=== PATIENT | female | born 1950 | race Caucasian/White ===

== ENCOUNTER 2021-04-06 20:22 | Inpatient (IN) | payer MEDICARE ==
[~2021-04-06] VITALS: Ht 167.6 cm; Wt 82.3 kg
--- NOTE | 2021-04-06 22:30 | NUR ---
ARRIVAL VIA EMS
[2021-04-06 23:11] VITALS: BP 143/77
--- NOTE | 2021-04-06 23:18 | PCM.EKG ---
[facility] Test Date: 2021-04-06 Test Time: 23:12:22 Pat Name: FREDY VAIL Department: Room: ICU2 A Gender: F [facility] Owner: : 1950 Requested By: ROCK ARRINGTON Order Number: [id number] Reading MD: Measurements Intervals [place] Rate: 90 P: 61 MN: 127 QRS: 6 QRSD: 97 T: 70 QT: 374 QTc: 458 Interpretive Statements Sinus rhythm Left atrial enlargement Borderline low voltage, extremity leads No previous ECG available for comparison Please click the below link to view image of tracing.
[2021-04-06 23:27] VITALS: BP 135/58
[2021-04-07] VITALS (21 sets, daily range): BP systolic 64–152; BP diastolic 27–119
[2021-04-07] MEDS ORDERED: TYLENOL PO PRN (01:00)
[2021-04-07] MEDS ORDERED: ATIVAN PO PRN (01:00)
--- NOTE | 2021-04-07 01:14 | PRM.CONS ---
Consultation Reason for Consult: Reason for Consultation: transfer from [place] for [facility] w/ RVR, A. flutter, pneumonia, UTI, hyperthy History of Present Illness Current and Past HX: (1) Atrial fibrillation with RVR ICD Code: I48.91 - Unspecified atrial fibrillation SNOMED: 186547347095561 Assessment & Plan: Converted to normal sinus rhythm prior to transfer. S/p adenosine followed by digoxin followed by cardizem drip x 36hrs. Doing well on cardizem 240mg total daily, last dose was 04/06/21 AM. EKG upon arrival: NSR. Patient then back into [facility]. -ordered cardizem 20mg IV x 1 (25mg/kg/dose) -continue cardizem 60mg PO q6h -continue digoxin 0.125mg PO daily -continue xarelto 20mg PO daily -consult cardiology in AM (2) Atrial flutter ICD Code: I48.92 - Unspecified atrial flutter SNOMED: 5790261 Assessment & Plan: See plan above. (3) Pneumonia Status: Acute ICD Code: J18.9 - Pneumonia, unspecified organism SNOMED: 192674313 Assessment & Plan: COVID-19 negative. -supplemental O2 as needed, wean as tolerated -continue zosyn and levaquin -pending CBC (4) Hyperthyroidism Status: Acute ICD Code: E05.90 - Thyrotoxicosis, unspecified without thyrotoxic crisis or storm SNOMED: 81355296 Assessment & Plan: Patient unsure of thyroid hx. Instrument Assembly Supervisor consulted while patient in [place]. Patient was started on methimazole 10mg PO BID. TSH ordered. (5) UTI (urinary tract infection) ICD Code: N39.0 - Urinary tract infection, site not specified SNOMED: 74180833 Assessment & Plan: Urine culture from outside facility: E.coli. Patient taking zosyn and levaquin as above. (6) T2DM (type 2 diabetes mellitus) Status: Chronic ICD Code: E11.9 - Type 2 diabetes mellitus without complications SNOMED: 04772589 Assessment & Plan: Continue home dose metformin, Diabetic diet. Glucose checks ACHS. SSI. (7) GERD (gastroesophageal reflux disease) Status: Chronic ICD Code: K21.9 - Gastro-esophageal reflux disease without esophagitis SNOMED: 093122399 Assessment & Plan: Protonix 40mg PO daily. History of Patient Comments 70yoF w/ hx of T2DM, GERD, hypothyroidism, and HLD presented to an ED in [place], [place] on 04/03/21 with altered mental status. Family was concerned so EMS was called and brought patient for evaluation. In the ED she was found to be in A.fib w/ RVR and episodes of A.flutter (no prior hx) and received adenosine and digoxin without conversion. She was then started on cardizem drip, which converted her to NSR. She remained on the cardizem drip for 36hrs then transitioned o PO cardizem and PO digoxin. She is on xarelto 20mg PO daily. She also has pneumonia, treated with zosyn and levaquin IV, as well as a UTI. An coding director was consulted and she was started on methimazole 10mg PO BID for hyperthyroidism, unable to locate labs in transfer documents. She remained in the ED in [place] awaiting a hospital bed w/ cardiology access. When she arrived to [facility], her EKG showed NSR. She is alert and oriented x 4. VItals stable, afebrile. Admitted to ICU with cardiology consult in AM. Problem Qualifiers (1) T2DM (type 2 diabetes mellitus): Diabetes mellitus long-term insulin use: with long-term use (2) GERD (gastroesophageal reflux disease): Esophagitis presence: without esophagitis Qualified Codes: K21.9 - Gastro- esophageal reflux disease without esophagitis ROCK ARRINGTON MD Apr 07, 2021 01:14
[2021-04-07] MEDS ORDERED: NS 100ML 100 ML IV ONE ×3 (01:32→05:51)
[2021-04-07] MEDS ORDERED: NS 250ML 250 ML ONE (01:37)
[2021-04-07] MEDS: ZOSYN 3.375 GM 3.375 GM in NS 100ML 100 ML IV SCH ×5 (01:45→23:34)
--- NOTE | 2021-04-07 01:50 | NUR ---
DR ARRINGTON TELE-MED WITH PT VIA [employer]. PER ADMIN CARDIZEM 20MG IV OT NOW. CONSULT CARDIOLOGY. TELEPHONE ORDER RBAV.
[2021-04-07] MEDS ORDERED: CARDIZEM IV STA (02:12)
[2021-04-07] MEDS ORDERED: CARDIZEM IV ONE ×2 (02:35→02:42)
--- NOTE | 2021-04-07 03:11 | NUR ---
DR GARCIA AT BEDSIDE. VERBAL ORDER TO START CARDIZEM GTT PER PROTOCOL.
[2021-04-07] MEDS ORDERED: CARDIZEM 125 MG in NS 100ML 100 ML IV SCH (03:30)
[2021-04-07 05:43] LABS: BASOPHIL % 0.1 % (0.0-0.2); EOSINOPHIL # 0.1 10^3/uL (0.0-0.2); EOSINOPHIL % 1.3 % (0.0-5.0); LYMPHOCYTES # 1.14 10^3/uL1 (1.0-4.8); LYMPHOCYTES % 13.6 % (24.0-44.0); MEAN CORP HGB 29.8 pg (26-34); MONOCYTES # 0.5 10^3/uL (0.3-0.8); MONOCYTES % 5.7 % (5.0-12.0); NEUTROPHIL # 6.6 10^3/uL (1.8-7.7); NEUTROPHILS % 79.3 % (41.0-85.0); PLATELET COUNT 259 10^3/uL (150-400); RED CELL DISTRIBUTION WIDTH 14.5 % (11.5-14.5)
[2021-04-07 05:52] LABS: CALCIUM 8.4 mg/dL (8.4-10.5); CARBON DIOXIDE 24.5 mmol/L (20.0-32)
[2021-04-07] MEDS: CARDIZEM PO SCH ×4 (06:00→23:33)
[2021-04-07] MEDS: HUMALOG SQ SCH ×4 (07:30→20:55)
--- NOTE | 2021-04-07 07:30 | NUR ---
at bedside at bedside assessing patient.
--- NOTE | 2021-04-07 07:45 | NUR ---
notified of patient condition. Patient transferred to bedside commode, upon returning to bed patient did not tolerate the transfer. notified of change in condition, patient complaining of shortness of breath and increase work of breathing. Physician stated that the patient needs to be on a 1000cc daily fluid restriction and to give 40 of lasix.
[2021-04-07] MEDS: PROTONIX PO SCH (08:40)
[2021-04-07] MEDS: GLUCOPHAGE PO SCH ×2 (08:40→20:33)
[2021-04-07] MEDS: TAPAZOLE PO SCH ×2 (08:40→20:30)
[2021-04-07] MEDS: XARELTO PO SCH (08:41)
[2021-04-07] MEDS: LANOXIN PO SCH (08:42)
[2021-04-07] MEDS ORDERED: LEVAQUIN 150 ML IV ONE (09:00)
[2021-04-07] MEDS ORDERED: LASIX IV STA ×2 (09:09→15:24)
--- NOTE | 2021-04-07 09:17 | PCM.HP ---
History of Present Illness Hx of Present Illness 70yoF w/ hx of T2DM, GERD, hypothyroidism, and HLD presented to an ED in [place], [place] on 04/03/21 with altered mental status. Family was concerned so EMS was called and brought patient for evaluation. In the ED she was found to be in A.fib w/ RVR and episodes of A.flutter (no prior hx) and received adenosine and digoxin without conversion. She was then started on cardizem drip, which converted her to NSR. She remained on the cardizem drip for 36hrs then transitioned o PO cardizem and PO digoxin. She is on xarelto 20mg PO daily. She also has pneumonia, treated with zosyn and levaquin IV, as well as a UTI. An compliance monitor was consulted and she was started on methimazole 10mg PO BID for hyperthyroidism, unable to locate labs in transfer documents. She remained in the ED in [place] awaiting a hospital bed w/ cardiology access. When she arrived to [facility], her EKG showed NSR. She is alert and oriented x 4. VItals stable, afebrile. Admitted to ICU with cardiology consult in AM. Review of Systems Constitutional: No: Fever, Chills, Sweats, Weakness, Malaise, Other Eyes: No: Pain, Vision change, Conjunctivae inflammation, Eyelid inflammation, Other, Redness ENT: No: Ear pain, Ear discharge, Nose pain, Nose discharge, Nose congestion, Mouth pain, Mouth swelling, Throat pain, Throat swelling, Other Respiratory: Shortness of breath Cardiovascular: Palpitations Gastrointestinal: No: Nausea, Vomiting, Abdominal Pain, Diarrhea, Constipation, Melena, Hematochezia, Other Genitourinary: Dysuria Musculoskeletal: No: other, neck pain, shoulder pain, arm pain, back pain, hand pain, leg pain, foot pain Skin: No: Rash, Lesions, Jaundice, Bruising, Other Neurological: No: Weakness, Numbness, Incoordination, Change in speech, Confusion, Seizures, Other Allergies: Coded Allergies: No Known Allergies (Unverified , 04/06/21) VTE VTE Risk Total Score: 0 VTE Risk Score VTE Risk: Score 0-1 = Low Risk (Aggressive mobilization; early ambulation; no VTE prophylaxis required) Score 2: Moderate Risk (Intermittent/Pneumatic Compression Device OR Lovenox/Heparin/Coumadin) Score 3-4: High Risk (Intermittent/Pneumatic Compression Device AND Lovenox/Heparin/Coumadin) Score > or =5: Highest Risk (Intermittent/Pneumatic Compression Device AND Lovenox/Heparin/Coumadin) VTE VTE Present on Admission: No Currently receiving anticoagul: Yes VTE Risk Total Score: 0 Exam Vital Signs Vital Signs Date Time Temp Pulse Resp B/P (MAP) Pulse Ox O2 Delivery O2 Flow Rate FiO2 04/07/21 08:00 84 38 91 04/07/21 07:53 98.9 04/07/21 07:37 98/53 (68) General Appearance: Alert, Oriented X3 HEENT: Atraumatic, PERRLA Respiratory: Other (crackle bilateral bases) Cardiovascular: Other (Irregularly irregular) Extremities: No clubbing, No cyanosis Skin: No rash, No breakdown Neuro: Sensation intact, Cranial nerves 3-12 NL Psych/Mental Status: Mood NL Assessment/Plan Assessment/Plan Assessment/Plan 70-year-old female with history of diabetes, GERD, thyroid disorder, hyperlipid emia transferred from outside hospital with UTI pneumonia A. fib with RVR she is being treated with Zosyn and Levaquin for pneumonia and UTI takes methimazole for hyperthyroidism Atrial fibrillation with RVR Received IV diltiazem has been bridged to oral diltiazem and digoxin on Xarelto TSH was high obtaining free T4 magnesium level potassium low repleting and rechecking. Obtain echocardiogram check BNP cardiology consult Pneumonia Repeat chest x-ray supplemental oxygen as needed continue Zosyn and Levaquin Hyperthyroidism May be contributing to A. fib with RVR check free T4 continue methimazole Urinary tract infection Being treated with Zosyn Levaquin previously cultured E. coli which is sensitive repeat cultures and urinalysis to monitor here Diabetes Sliding scale insulin Accu-Cheks check A1c GERD Protonix Prophylaxis SCDs, Baljinder, Protonix NASIR GARCIA MD Apr 07, 2021 09:17
[2021-04-07 09:23] LABS: CHOLESTEROL 98 mg/dL (120-240); HDL CHOLESTEROL 14 mg/dL (32-96)
[2021-04-07] MEDS ORDERED: KCL 20MEQ/100ML 100 ML IV ONE ×2 (09:30→13:04)
[2021-04-07] MEDS ORDERED: LOPRESSER ONE (09:46)
[2021-04-07] MEDS ORDERED: LOPRESSER IVP STA ×2 (09:50→11:29)
[2021-04-07] MEDS: KLOR-CON 10 PO SCH ×2 (10:34→20:32)
[2021-04-07] MEDS ORDERED: MAGNESIUM SULFATE 50 ML IV ONE (11:00)
[2021-04-07] MEDS ORDERED: TOPROL XL PO ONE (11:20)
[2021-04-07] MEDS ORDERED: MAGNESIUM-D5W 1 GM/100 ML SOLN 100 ML IV ONE (11:24)
[2021-04-07] MEDS ORDERED: TOPROL XL PO STA (11:29)
[2021-04-07] MEDS ORDERED: SUBLIMAZE ONE (11:33)
[2021-04-07] MEDS ORDERED: SUBLIMAZE IV ONE (12:00)
--- NOTE | 2021-04-07 12:41 | DIREP ---
PROCEDURE:CHEST 1 VIEW COMPARISON:None. INDICATIONS:pneumonia FINDINGS: LUNGS/PLEURA:Airspace opacity in the left lower lung consistent with pneumonia. VASCULATURE:Normal. Unremarkable pulmonary vasculature. CARDIAC:Normal. No cardiac silhouette abnormality or cardiomegaly. MEDIASTINUM:Normal. No visible mass or adenopathy. BONES:Arthritic changes both shoulders. OTHER:Monitor leads in place. CONCLUSION:Left lower lung pneumonia. Dictated by: Braxton Deshpande M.D. on 04/07/2021 at 12:38 PM
[2021-04-07] MEDS ORDERED: NS 500ML 500 ML IV ONE (13:06)
[2021-04-07 14:35] LABS: BILIRUBIN,URINE NEGATIVE (NEGATIVE); UROBILINOGEN,URINE 0.2 E.U./dL (0.2)
[2021-04-07 15:37] LABS: BASOPHIL % 0.1 % (0.0-0.2); EOSINOPHIL % 0.3 % (0.0-5.0); LYMPHOCYTES # 1.13 10^3/uL1 (1.0-4.8); LYMPHOCYTES % 10.2 % (24.0-44.0); MEAN CORP HGB 28.7 pg (26-34); MONOCYTES # 0.4 10^3/uL (0.3-0.8); MONOCYTES % 3.9 % (5.0-12.0); NEUTROPHIL # 9.4 10^3/uL (1.8-7.7); NEUTROPHILS % 84.6 % (41.0-85.0); PLATELET COUNT 346 10^3/uL (150-400); RED CELL DISTRIBUTION WIDTH 14.6 % (11.5-14.5)
[2021-04-07 16:00] LABS: CALCIUM 8.4 mg/dL (8.4-10.5)
--- NOTE | 2021-04-07 16:36 | NUR ---
Cardizem drip Cardizem drip started at 0930 @5mg/hour 0945 Cardizem increased to 10mg/hour 1330 Cardizem decreased to 5mg/hour per physician order 1345 Cardizem D/C PER Physician order.
[2021-04-07] MEDS: DITROPAN PO SCH (20:33)
[2021-04-08] VITALS (18 sets, daily range): BP systolic 96–138; BP diastolic 49–107
[2021-04-08] MEDS: ZOSYN 3.375 GM 3.375 GM in NS 100ML 100 ML IV SCH ×4 (05:44→23:33)
[2021-04-08 05:51] LABS: BASOPHIL % 0.2 % (0.0-0.2); EOSINOPHIL # 0.1 10^3/uL (0.0-0.2); EOSINOPHIL % 1.1 % (0.0-5.0); LYMPHOCYTES # 1.43 10^3/uL1 (1.0-4.8); LYMPHOCYTES % 14.4 % (24.0-44.0); MEAN CORP HGB 28.6 pg (26-34); MONOCYTES # 0.6 10^3/uL (0.3-0.8); MONOCYTES % 5.6 % (5.0-12.0); NEUTROPHIL # 7.8 10^3/uL (1.8-7.7); PLATELET COUNT 343 10^3/uL (150-400); RED CELL DISTRIBUTION WIDTH 14.5 % (11.5-14.5)
[2021-04-08] MEDS: CARDIZEM PO SCH ×3 (05:58→17:43)
[2021-04-08 06:06] LABS: CALCIUM 8.7 mg/dL (8.4-10.5); CARBON DIOXIDE 29.4 mmol/L (20.0-32)
--- NOTE | 2021-04-08 06:27 | NUR ---
TELEPHONE ORDER PER DR GARCIA FOR AFIB WITH RVR IN THE 150'S FOR METOPROLOL 5MG IV STAT OT. TELEPHONE ORDER RBAV.
[2021-04-08] MEDS ORDERED: LOPRESSER IVP STA (06:28)
--- NOTE | 2021-04-08 06:46 | NUR ---
DR GARCIA ON UNIT. VERBAL ORDER GIVEN FOR METOPROLOL SUCCINATE 25MG PO DAILY. VERBAL ORDER RBAV.
[2021-04-08] MEDS: HUMALOG SQ SCH ×4 (07:30→20:24)
[2021-04-08] MEDS ORDERED: KLOR-CON 10 PO SCH (07:30)
[2021-04-08] MEDS: GLUCOPHAGE PO SCH ×2 (08:12→20:19)
[2021-04-08] MEDS: XARELTO PO SCH (08:13)
[2021-04-08] MEDS: KLOR-CON 10 PO SCH ×2 (08:13→20:17)
[2021-04-08] MEDS: PROTONIX PO SCH (08:13)
[2021-04-08] MEDS: TAPAZOLE PO SCH ×2 (08:13→20:17)
[2021-04-08] MEDS: LANOXIN PO SCH (08:13)
[2021-04-08] MEDS ORDERED: TOPROL XL PO SCH (09:00)
--- NOTE | 2021-04-08 09:23 | PRM.PN ---
Subjective Subjective Date: Apr 08, 2021 Time: 09:17 Subjective She reports that she has intermittent palpitations but denies any this morning. Patient has no chest pain and her blood pressures been stable. Patient's labs reviewed this morning and was significant for hypokalemia and hypernatremia. No other changes overnight. Patient resting in bed comfortably when I visited with her. On minimal supplemental oxygen VTE VTE Risk Total Score: 0 VTE Risk Score VTE Risk: Score 0-1 = Low Risk (Aggressive mobilization; early ambulation; no VTE prophylaxis required) Score 2: Moderate Risk (Intermittent/Pneumatic Compression Device OR Lovenox/Heparin/Coumadin) Score 3-4: High Risk (Intermittent/Pneumatic Compression Device AND Lovenox/Heparin/Coumadin) Score > or =5: Highest Risk (Intermittent/Pneumatic Compression Device AND Lovenox/Heparin/Coumadin) Antico:Hep/LMWH/Coum/Xarelto: Yes Mechanical device ordered: Yes Review of Systems Constitutional: No: Fever, Chills, Sweats, Weakness, Malaise, Other Eyes: No: Pain, Vision change, Conjunctivae inflammation, Eyelid inflammation, Other, Redness ENT: No: Ear pain, Ear discharge, Nose pain, Nose discharge, Nose congestion, Mouth pain, Mouth swelling, Throat pain, Throat swelling, Other Respiratory: Shortness of breath, SOB with excertion Cardiovascular: Palpitations; No: Chest Pain Gastrointestinal: No: Nausea, Vomiting, Abdominal Pain, Diarrhea, Constipation, Melena, Hematochezia, Other Genitourinary: Dysuria Musculoskeletal: No: other, neck pain, shoulder pain, arm pain, back pain, hand pain, leg pain, foot pain Skin: No: Rash, Lesions, Jaundice, Bruising, Other Neurological: No: Weakness, Numbness, Incoordination, Change in speech, Confusion, Seizures, Other Allergies: Coded Allergies: No Known Allergies (Unverified , 04/06/21) Objective General: Alert, Oriented X3, Cooperative, No acute distress HEENT: Atraumatic, PERRLA Neck: Supple, No JVD Lungs: Other (crackle bilateral bases) Heart: Other (Irregularly irregular) Abdomen: Normal bowel sounds Extremities: No clubbing, No cyanosis Skin: No rashes Neuro: Normal gait, Sensation intact, Cranial nerves 3-12 NL Psych/Mental Status: Mood NL All Results(Lab/Rad) Laboratory Tests Test 04/07/21 11:23 04/07/21 13:00 04/07/21 14:25 04/07/21 15:30 Bedside Glucose 320 Potassium Level 3.1 mmol/L 3.3 mmol/L Magnesium Level 2.4 mg/dL Urine Collection Type CATH Urine Color STRAW Urine Appearance HAZY Urine Bilirubin NEGATIVE Urine Ketones NEGATIVE Urine Specific Man 1.010 Urine pH 5.0 Urine Protein NEGATIVE Urine Urobilinogen 0.2 E.U./dL Urine Nitrate NEGATIVE Urine Leukocyte Esterase NEGATIVE Urine Glucose (Auto)(UA) 100 Urine Blood LARGE Urine RBC TNTC RBC/HPF Urine WBC 2-5 WBC/HPF Urine Squamous Epithelial Cells RARE #/HPF Urine Bacteria NONE SEEN White Blood Count 11.1 10^3/uL Red Blood Count 3.73 10^6/uL Hemoglobin 10.7 g/dL Hematocrit 33.8 % Mean Corpuscular Volume 90.6 fL Mean Corpuscular Hemoglobin 28.7 pg Mean Corpuscular Hemoglobin Concent 31.7 g/dL Red Cell Distribution Width 14.6 % Platelet Count 346 10^3/uL Mean Platelet Volume 11.3 fL Neutrophils (%) (Auto) 84.6 % Lymphocytes (%) (Auto) 10.2 % Monocytes (%) (Auto) 3.9 % Neutrophils # (Auto) 9.4 10^3/uL Lymphocytes # (Auto) 1.13 10^3/uL1 Monocytes # (Auto) 0.4 10^3/uL Absolute Immature Granulocyte (auto 0.10 10^3 u/L Absolute Eosinophils (auto) 0.0 10^3/uL Immature Granulocytes % 0.90 % Eosinophils % 0.3 % Basophils % 0.1 % Basophils # 0.0 10^3/uL Sodium Level 143 mmol/L Chloride Level 104.0 mmol/L Carbon Dioxide Level 28.0 mmol/L Anion Gap 14.3 Blood Urea Nitrogen 22 mg/dL Creatinine 1.10 mg/dL Estimated GFR () 59.2 Est GFR (CKD-EPI)(Non-Afr Cymro) 49.0 BUN/Creatinine Ratio 20.0 Glucose Level 235 mg/dL Calcium Level 8.4 mg/dL Total Bilirubin 0.6 mg/dL Aspartate Amino Transf (AST/SGOT) 20 U/L Alanine Aminotransferase (ALT/SGPT) 68 U/L Alkaline Phosphatase 129 U/L Total Protein 6.8 g/dL Albumin 2.0 g/dL Globulin 4.8 Albumin/Globulin Ratio 0.416 Test 04/07/21 20:43 04/08/21 05:10 Bedside Glucose 151 White Blood Count 10.0 10^3/uL Red Blood Count 3.53 10^6/uL Hemoglobin 10.1 g/dL Hematocrit 32.2 % Mean Corpuscular Volume 91.2 fL Mean Corpuscular Hemoglobin 28.6 pg Mean Corpuscular Hemoglobin Concent 31.4 g/dL Red Cell Distribution Width 14.5 % Platelet Count 343 10^3/uL Mean Platelet Volume 11.7 fL Neutrophils (%) (Auto) 78.0 % Lymphocytes (%) (Auto) 14.4 % Monocytes (%) (Auto) 5.6 % Neutrophils # (Auto) 7.8 10^3/uL Lymphocytes # (Auto) 1.43 10^3/uL1 Monocytes # (Auto) 0.6 10^3/uL Absolute Immature Granulocyte (auto 0.07 10^3 u/L Absolute Eosinophils (auto) 0.1 10^3/uL Immature Granulocytes % 0.70 % Eosinophils % 1.1 % Basophils % 0.2 % Basophils # 0.0 10^3/uL Sodium Level 147 mmol/L Potassium Level 3.1 mmol/L Chloride Level 106.0 mmol/L Carbon Dioxide Level 29.4 mmol/L Anion Gap 14.7 Blood Urea Nitrogen 24 mg/dL Creatinine 0.97 mg/dL Estimated GFR () 68.5 Est GFR (CKD-EPI)(Non-Afr Cymro) 56.6 BUN/Creatinine Ratio 24.0 Glucose Level 177 mg/dL Hemoglobin A1c 8.1 % Calcium Level 8.7 mg/dL Total Bilirubin 0.6 mg/dL Aspartate Amino Transf (AST/SGOT) 21 U/L Alanine Aminotransferase (ALT/SGPT) 64 U/L Alkaline Phosphatase 114 U/L Total Protein 6.5 g/dL Albumin 2.0 g/dL Globulin 4.5 Albumin/Globulin Ratio 0.444 Current Medications Medications (Trade) Dose Ordered Sig/Leelee Route PRN Reason Start Time Stop Time Status Last Admin Dose Admin Acetaminophen (Tylenol) 1,000 mg Q6H PRN PO PAIN 1 - 3 04/07/21 01:00 05/07/21 00:59 Pantoprazole Sodium (Protonix) 40 mg DAILY PO 04/07/21 09:00 05/07/21 08:59 04/08/21 08:13 Insulin Human Lispro (Humalog) 0-140 0 Units 141-200... ACHS SQ 04/07/21 07:30 05/07/21 07:29 04/08/21 07:30 Oxybutynin Chloride (Ditropan) 10 mg HS PO 04/07/21 21:00 05/07/21 20:59 04/07/21 20:33 Metformin HCl (Glucophage) 500 mg BID PO 04/07/21 09:00 05/07/21 08:59 04/08/21 08:12 Rivaroxaban (Xarelto) 20 mg DAILY PO 04/07/21 09:00 05/07/21 08:59 04/08/21 08:13 Piperacillin Sod/ Tazobactam Sod 3.375 gm/Sodium Chloride 100 ml @ 100 mls/hr Q6H IV 04/07/21 00:00 05/07/21 00:00 04/08/21 05:44 Levofloxacin/ Dextrose 150 ml @ 100 mls/hr Q24HRS ONCE IV 04/07/21 09:00 04/07/21 10:29 DC 04/07/21 08:42 Diltiazem HCl (Cardizem) 60 mg Q6HR PO 04/07/21 06:00 05/07/21 05:59 04/08/21 05:58 Digoxin (Lanoxin) 125 mcg DAILY PO 04/07/21 09:00 05/07/21 08:59 04/08/21 08:13 Lorazepam (Ativan) 0.5 mg Q6H PRN PO AGITATION 04/07/21 01:00 05/07/21 00:59 Sodium Chloride 100 ml @ ud STK-MED ONCE IV 04/07/21 01:32 04/07/21 01:32 DC Sodium Chloride 250 ml @ ud STK-MED ONCE .ROUTE 04/07/21 01:37 04/07/21 01:38 DC Diltiazem HCl (Cardizem) 20 mg STAT STAT IV 04/07/21 02:12 04/07/21 05:18 DC 04/07/21 02:12 Methimazole (Tapazole) 10 mg BID PO 04/07/21 09:00 05/07/21 08:59 04/08/21 08:13 Diltiazem HCl (Cardizem) 50 mg STK-MED ONCE IV 04/07/21 02:35 04/07/21 02:36 DC Diltiazem HCl (Cardizem) 20 mg OT ONCE IV 04/07/21 02:42 04/07/21 02:47 DC 04/07/21 02:38 Diltiazem HCl 125 mg/Sodium Chloride 125 ml @ 0 mls/hr TITRATE IV 04/07/21 03:30 05/07/21 03:29 04/07/21 16:34 Sodium Chloride 100 ml @ ud STK-MED ONCE IV 04/07/21 03:14 04/07/21 03:14 DC Sodium Chloride 100 ml @ ud STK-MED ONCE IV 04/07/21 05:51 04/07/21 05:51 DC Potassium Chloride (Klor-Con 10) 20 meq BID PO 04/07/21 09:30 05/07/21 09:29 04/08/21 08:13 Potassium Chloride 100 ml @ 50 mls/hr OT ONCE IV 04/07/21 09:30 04/07/21 11:29 DC 04/07/21 09:30 Furosemide (Lasix) 40 mg STAT STAT IV 04/07/21 09:09 04/07/21 09:14 DC 04/07/21 09:09 Metoprolol Tartrate (Lopresser) 5 mg STK-MED ONCE .ROUTE 04/07/21 09:46 04/07/21 09:46 DC Magnesium Sulfate 50 ml @ 50 mls/hr OT ONCE IV 04/07/21 11:00 04/07/21 11:59 DC 04/07/21 11:00 Metoprolol Tartrate (Lopresser) 5 mg STAT STAT IVP 04/07/21 09:50 04/07/21 11:33 DC 04/07/21 09:52 Metoprolol Succinate (Toprol Xl) 25 mg STK-MED ONCE PO 04/07/21 11:20 04/07/21 11:20 DC Magnesium Sulfate/ Dextrose 100 ml @ ud STK-MED ONCE IV 04/07/21 11:24 04/07/21 11:24 DC Metoprolol Succinate (Toprol Xl) 25 mg STAT STAT PO 04/07/21 11:29 04/07/21 11:33 DC 04/07/21 11:48 Metoprolol Tartrate (Lopresser) 5 mg STAT STAT IVP 04/07/21 11:29 04/07/21 11:33 DC 04/07/21 11:29 Fentanyl Citrate (Sublimaze) 50 mcg STK-MED ONCE .ROUTE 04/07/21 11:33 04/07/21 11:33 DC Fentanyl Citrate (Sublimaze) 25 mcg STAT ONCE IV 04/07/21 12:00 04/07/21 12:14 DC 04/07/21 12:00 Potassium Chloride 100 ml @ ud STK-MED ONCE IV 04/07/21 13:04 04/07/21 13:04 DC Sodium Chloride 500 ml @ ud STK-MED ONCE IV 04/07/21 13:06 04/07/21 13:06 DC Furosemide (Lasix) 40 mg STAT STAT IV 04/07/21 15:24 04/07/21 19:29 DC 04/07/21 15:34 Metoprolol Tartrate (Lopresser) 5 mg STAT STAT IVP 04/08/21 06:28 04/08/21 06:29 UNV 04/08/21 06:53 Metoprolol Succinate (Toprol Xl) 25 mg DAILY PO 04/08/21 09:00 05/08/21 08:59 UNV 04/08/21 08:12 Potassium Chloride (Klor-Con 10) 40 meq STAT PO 04/08/21 07:30 05/08/21 07:29 UNV Course Sepsis Screening Results: Posi: NEGATIVE Sepsis Qualifier/Stage: NO DEFINITE RISK Vitals & review Data Laboratory Tests Test 04/07/21 05:30 04/07/21 07:31 04/07/21 09:15 04/07/21 11:23 White Blood Count 8.4 10^3/uL Red Blood Count 3.32 10^6/uL Hemoglobin 9.9 g/dL Hematocrit 30.4 % Mean Corpuscular Volume 91.6 fL Mean Corpuscular Hemoglobin 29.8 pg Mean Corpuscular Hemoglobin Concent 32.6 g/dL Red Cell Distribution Width 14.5 % Platelet Count 259 10^3/uL Mean Platelet Volume 12.1 fL Neutrophils (%) (Auto) 79.3 % Lymphocytes (%) (Auto) 13.6 % Monocytes (%) (Auto) 5.7 % Neutrophils # (Auto) 6.6 10^3/uL Lymphocytes # (Auto) 1.14 10^3/uL1 Monocytes # (Auto) 0.5 10^3/uL Absolute Immature Granulocyte (auto 0.08 10^3 u/L Absolute Eosinophils (auto) 0.1 10^3/uL Immature Granulocytes % 1.00 % Eosinophils % 1.3 % Basophils % 0.1 % Basophils # 0.0 10^3/uL Sodium Level 145 mmol/L Potassium Level 3.2 mmol/L Chloride Level 108.0 mmol/L Carbon Dioxide Level 24.5 mmol/L Glucose Level 228 mg/dL Blood Urea Nitrogen 25 mg/dL Creatinine 0.93 mg/dL Calcium Level 8.4 mg/dL Anion Gap 15.7 Estimated GFR () 71.9 Est GFR (CKD-EPI)(Non-Afr Cymro) 59.4 BUN/Creatinine Ratio 26.0 Hemoglobin A1c 8.4 % Magnesium Level 1.7 mg/dL Troponin I < 0.02 ng/mL Pro-B-Type Natriuretic Peptide 1210 pg/mL Triglycerides Level 206 mg/dL Cholesterol Level 98 mg/dL LDL Cholesterol, Calculated 42.8 VLDL Cholesterol, Calculated 41.2 HDL Cholesterol 14 mg/dL Cholesterol Ratio (LDL/HDL) 3.0 Cholesterol/HDL Ratio [id number] Thyroid Stimulating Hormone (TSH) < 0.010 mIU/mL Free Thyroxine 1.68 ng/dL Bedside Glucose 223 320 Prothrombin Time 15.6 SEC Prothrombin Time INR (Non-Therap) 1.5 Activated Partial Thromboplast Time 30.5 SEC Test 04/07/21 13:00 04/07/21 14:25 04/07/21 15:30 04/07/21 20:43 Potassium Level 3.1 mmol/L 3.3 mmol/L Magnesium Level 2.4 mg/dL Urine Collection Type CATH Urine Color STRAW Urine Appearance HAZY Urine Bilirubin NEGATIVE Urine Ketones NEGATIVE Urine Specific Man 1.010 Urine pH 5.0 Urine Protein NEGATIVE Urine Urobilinogen 0.2 E.U./dL Urine Nitrate NEGATIVE Urine Leukocyte Esterase NEGATIVE Urine Glucose (Auto)(UA) 100 Urine Blood LARGE Urine RBC TNTC RBC/HPF Urine WBC 2-5 WBC/HPF Urine Squamous Epithelial Cells RARE #/HPF Urine Bacteria NONE SEEN White Blood Count 11.1 10^3/uL Red Blood Count 3.73 10^6/uL Hemoglobin 10.7 g/dL Hematocrit 33.8 % Mean Corpuscular Volume 90.6 fL Mean Corpuscular Hemoglobin 28.7 pg Mean Corpuscular Hemoglobin Concent 31.7 g/dL Red Cell Distribution Width 14.6 % Platelet Count 346 10^3/uL Mean Platelet Volume 11.3 fL Neutrophils (%) (Auto) 84.6 % Lymphocytes (%) (Auto) 10.2 % Monocytes (%) (Auto) 3.9 % Neutrophils # (Auto) 9.4 10^3/uL Lymphocytes # (Auto) 1.13 10^3/uL1 Monocytes # (Auto) 0.4 10^3/uL Absolute Immature Granulocyte (auto 0.10 10^3 u/L Absolute Eosinophils (auto) 0.0 10^3/uL Immature Granulocytes % 0.90 % Eosinophils % 0.3 % Basophils % 0.1 % Basophils # 0.0 10^3/uL Sodium Level 143 mmol/L Chloride Level 104.0 mmol/L Carbon Dioxide Level 28.0 mmol/L Anion Gap 14.3 Blood Urea Nitrogen 22 mg/dL Creatinine 1.10 mg/dL Estimated GFR () 59.2 Est GFR (CKD-EPI)(Non-Afr Cymro) 49.0 BUN/Creatinine Ratio 20.0 Glucose Level 235 mg/dL Calcium Level 8.4 mg/dL Total Bilirubin 0.6 mg/dL Aspartate Amino Transf (AST/SGOT) 20 U/L Alanine Aminotransferase (ALT/SGPT) 68 U/L Alkaline Phosphatase 129 U/L Total Protein 6.8 g/dL Albumin 2.0 g/dL Globulin 4.8 Albumin/Globulin Ratio 0.416 Bedside Glucose 151 Test 04/08/21 05:10 White Blood Count 10.0 10^3/uL Red Blood Count 3.53 10^6/uL Hemoglobin 10.1 g/dL Hematocrit 32.2 % Mean Corpuscular Volume 91.2 fL Mean Corpuscular Hemoglobin 28.6 pg Mean Corpuscular Hemoglobin Concent 31.4 g/dL Red Cell Distribution Width 14.5 % Platelet Count 343 10^3/uL Mean Platelet Volume 11.7 fL Neutrophils (%) (Auto) 78.0 % Lymphocytes (%) (Auto) 14.4 % Monocytes (%) (Auto) 5.6 % Neutrophils # (Auto) 7.8 10^3/uL Lymphocytes # (Auto) 1.43 10^3/uL1 Monocytes # (Auto) 0.6 10^3/uL Absolute Immature Granulocyte (auto 0.07 10^3 u/L Absolute Eosinophils (auto) 0.1 10^3/uL Immature Granulocytes % 0.70 % Eosinophils % 1.1 % Basophils % 0.2 % Basophils # 0.0 10^3/uL Sodium Level 147 mmol/L Potassium Level 3.1 mmol/L Chloride Level 106.0 mmol/L Carbon Dioxide Level 29.4 mmol/L Anion Gap 14.7 Blood Urea Nitrogen 24 mg/dL Creatinine 0.97 mg/dL Estimated GFR () 68.5 Est GFR (CKD-EPI)(Non-Afr Cymro) 56.6 BUN/Creatinine Ratio 24.0 Glucose Level 177 mg/dL Hemoglobin A1c 8.1 % Calcium Level 8.7 mg/dL Total Bilirubin 0.6 mg/dL Aspartate Amino Transf (AST/SGOT) 21 U/L Alanine Aminotransferase (ALT/SGPT) 64 U/L Alkaline Phosphatase 114 U/L Total Protein 6.5 g/dL Albumin 2.0 g/dL Globulin 4.5 Albumin/Globulin Ratio 0.444 Current Medications Medications (Trade) Dose Ordered Sig/Leelee PRN Reason Start Time Stop Time Status Last Admin Acetaminophen (Tylenol) 1,000 mg Q6H PRN PAIN 1 - 3 04/07/21 01:00 05/07/21 00:59 Digoxin (Lanoxin) 125 mcg DAILY 04/07/21 09:00 05/07/21 08:59 04/08/21 08:13 Diltiazem HCl (Cardizem) 60 mg Q6HR 04/07/21 06:00 05/07/21 05:59 04/08/21 05:58 Diltiazem HCl 125 mg/Sodium Chloride 125 ml @ 0 mls/hr TITRATE 04/07/21 03:30 05/07/21 03:29 04/07/21 16:34 Insulin Human Lispro (Humalog) 0-140 0 Units 141-200... ACHS 04/07/21 07:30 05/07/21 07:29 04/08/21 07:30 Lorazepam (Ativan) 0.5 mg Q6H PRN AGITATION 04/07/21 01:00 05/07/21 00:59 Metformin HCl (Glucophage) 500 mg BID 04/07/21 09:00 05/07/21 08:59 04/08/21 08:12 Methimazole (Tapazole) 10 mg BID 04/07/21 09:00 05/07/21 08:59 04/08/21 08:13 Metoprolol Succinate (Toprol Xl) 25 mg DAILY 04/08/21 09:00 05/08/21 08:59 UNV 04/08/21 08:12 Metoprolol Tartrate (Lopresser) 5 mg STAT STAT 04/08/21 06:28 04/08/21 06:29 UNV 04/08/21 06:53 Oxybutynin Chloride (Ditropan) 10 mg HS 04/07/21 21:00 05/07/21 20:59 04/07/21 20:33 Pantoprazole Sodium (Protonix) 40 mg DAILY 04/07/21 09:00 05/07/21 08:59 04/08/21 08:13 Piperacillin Sod/ Tazobactam Sod 3.375 gm/Sodium Chloride 100 ml @ 100 mls/hr Q6H 04/07/21 00:00 05/07/21 00:00 04/08/21 05:44 Potassium Chloride (Klor-Con 10) 20 meq BID 04/07/21 09:30 05/07/21 09:29 04/08/21 08:13 Potassium Chloride (Klor-Con 10) 40 meq STAT 04/08/21 07:30 05/08/21 07:29 UNV Rivaroxaban (Xarelto) 20 mg DAILY 04/07/21 09:00 05/07/21 08:59 04/08/21 08:13 LEVEL 1 SEPSIS INFECTION CRITE: ABX Therapy LEVEL 2-SIRS (LIST ALL THAT AP: RR>20/min O2 Sat by Pulse Oximetry: 93 Oxygen Flow Rate: 3.00 Assessment/Plan Assessment/Plan Assessment/Plan 70-year-old female with history of diabetes, GERD, thyroid disorder, hyperlipidemia transferred from outside hospital with UTI pneumonia A. fib with RVR she is being treated with Zosyn and Levaquin for pneumonia and UTI takes methimazole for hyperthyroidism Atrial fibrillation with RVR -EKG 04/06 showed normal sinus rhythm with left atrial enlargement -Patient had elevated thyroid function with a low TSH. Currently receiving methimazole -Patient had been switched to oral diltiazem prior to transfer to [facility] but rate and rhythm became uncontrolled and was placed back on diltiazem drip. -Patient's rate is currently in the 80s. -Patient has received intermittent BB with 5mg of Metoprolol . -Metoprolol succinate 25 mg daily started 04/07 -Continue digoxin 125 mcg daily. Closely monitor -Continue anticoagulation with Xarelto 20 mg daily -Cardiology (Dr. Pepe) consulted and appreciate recommendations-->switched to Sotalol 80 mg PO BID and discontinue all other antiarrhythmics continue Xarelto transthoracic ECHO complete no further inpatient workup will need cardiology follow up in [place] and [facility] for valve issues -Cleared by cardiology for discharge tomorrow when other medical conditions are stable (cardiology prescriptions in the paper chart) Pneumonia -Imaging with chest x-ray was done on 04/07 showed lower lobe lung pneumonia -Patient mild leukocytosis has improved to normal range today -Continue supplemental oxygen as needed to keep SPO2 above 90% -Continue broad antibiotic coverage with Zosyn and Levaquin. -We will repeat x-ray in the morning. Hyperthyroidism -Patient with no mental status change -TSH <0.010 on admission with elevated free T4 at 1.68 -continue [id number] mg p.o. twice daily Urinary tract infection -Repeat UA was obtained on 04/07 showed large amount of urine blood, no bacteria. -Patient's prior urine culture with E. coli -Patient is receiving Zosyn and Levaquin. Diabetes --Patient has had poorly controlled diabetes. -In the last 24 hours glucose has been ranging between 223-320 -Patient hemoglobin A1c was 8.4 on 04/07. -We will like to initiate basal insulin coverage: Start Lantus 5 units daily -Continue Metformin 500 mg twice daily. Will increase to 1000 mg daily today. -Continue sliding scale insulin coverage. -Monitor Accu-Cheks before meals and at bedtime Hypernatremia -Na 147 -Calculated free water deficit is 2 L. -Patient is able to take p.o. we will encourage more oral fluids. -Continue to monitor daily sodium levels. Hypokalemia -Replete and recheck in the morning GERD Protonix Prophylaxis SCDs, Xarelto, Protonix Do Not Intubate [facility] Apr 08, 2021 09:23 NASIR GARCIA MD Apr 09, 2021 00:37
[2021-04-08] MEDS ORDERED: NS 100ML 100 ML IV ONE (11:22)
--- NOTE | 2021-04-08 18:55 | NUR ---
REPORT RECEIVED FROM HORACIO HADDAD RN. ASSUMED PT CARE.
--- NOTE | 2021-04-08 19:30 | NUR ---
TELEPHONE ORDER PER DR FARLEY TO D/C METOPROLOL, D/C CARDIZEM AND D/C DIGOXIN. START SOTALOL 80MG PO BID. TELEPHONE ORDERS RBAV.
[2021-04-08] MEDS: BETAPACE PO SCH (20:17)
[2021-04-08] MEDS: DITROPAN PO SCH (20:18)
[2021-04-08] MEDS ORDERED: LANTUS SQ SCH (21:00)
--- NOTE | 2021-04-08 22:35 | NUR ---
DR FARLEY ON UNIT. PLAN OF CARE DISCUSSED WITH PT WITH UNDERSTANDING. NO NEW ORDERS.
[2021-04-09] VITALS (8 sets, daily range): BP systolic 122–159; BP diastolic 60–92
--- NOTE | 2021-04-09 | NUR ---
CHG BAT ADMIN AT THIS TIME. PT TOLERATED WELL. WILL CONTINUE TO MONITOR.
--- NOTE | 2021-04-09 02:04 | CNH ---
DATE OF CONSULTATION: 04/08/2021 DICTATOR NAME: OPLLY FARLEY DO REASON FOR CONSULTATION: New-onset atrial fibrillation with rapid ventricular response. HISTORY OF PRESENT ILLNESS: This is a 70-year-old female who was transferred from [place] to [facility] with altered mental status, new onset atrial fibrillation with rapid ventricular response. She was also noted to have a left lower lobe pneumonia as well as a UTI. She is currently on antibiotics for pneumonia as well as UTI. A consultation was placed to Cardiology Service for evaluation for new onset atrial fibrillation with rapid ventricular response. She was initially started on Cardizem drip at the outside facility and was transitioned to p.o. Cardizem; however, she went back into atrial fibrillation. She is also noted to have elevated thyroid hormones and is currently on methimazole for hyperthyroidism. PAST MEDICAL HISTORY: Significant for, 1. Type 2 diabetes mellitus. 2. ___. 3. Hyperlipidemia. PAST SURGICAL HISTORY: Noncontributory. ALLERGIES: She has no known drug allergies. MEDICATIONS: She takes at home includes oxybutynin, metformin. FAMILY HISTORY: She denies any family history of premature coronary artery disease or sudden cardiac . SOCIAL HISTORY: Denies alcohol use, denies tobacco use, denies illicit drug use. REVIEW OF SYSTEMS: As per HPI and as per previous records. All systems are reviewed and negative for interval change. PHYSICAL EXAMINATION: VITAL SIGNS: Blood pressure is currently 122/66, respiratory rate is 24, pulse is 79, temperature is 98.5, pulse oximetry is 96% on 2 liters. GENERAL: She is in no apparent distress, alert and oriented x 3. HEENT: Normocephalic, atraumatic. Extraocular muscles intact. Pupils equally round, reactive to light and accommodation. CARDIAC: S1, S2 regular. Plus 3/6 holosystolic murmur. No gallops, rubs, or clicks. LUNGS: Decreased breath sounds bilaterally. ABDOMEN: Soft, nontender, nondistended. Positive bowel sounds in all four quadrants. EXTREMITIES: No cyanosis, no clubbing, no edema, +2 pedal pulses palpable bilaterally. NEUROLOGIC: No neurological deficits. Sensation is intact. IMPRESSION: 1. Paroxysmal atrial fibrillation with rapid ventricular response -- patient as chemically converted to normal sinus rhythm on sotalol 80 mg p.o. b.i.d. 2. CHADS2-VASc score of 3. 3. Left ventricular ejection fraction of 65-70% on 2D echo done this admission. 4. Severe mitral regurgitation. 5. Severe tricuspid regurgitation. 6. Severe pulmonary hypertension. 7. Biatrial dilatation. 8. Type 2 diabetes mellitus. 9. Acute pneumonia. 10. Acute urinary tract infection. 11. Hyperlipidemia. 12. Elevated thyroid hormones. RECOMMENDATIONS: This is a 70-year-old female who was brought in from an outside facility with atrial fibrillation with rapid ventricular response in the setting of acute left lower lobe pneumonia as well as acute UTI. She was also noted to have elevated thyroid hormones and is currently on methimazole. I suspect her atrial fibrillation was elicited by elevated thyroid hormones in the setting of active infectious process in the lungs as well as urinary tract. She does have biatrial dilatation with severe MR and severe TR. She has been started on sotalol 80 mg p.o. b.i.d. She has chemically converted to normal sinus rhythm. She is currently on Xarelto 20 mg p.o. every day. She will be kept on sotalol for rate control and Xarelto for oral anticoagulation going forward. 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 No further cardiovascular workup is necessary at this time. She denies any angina. EKG does not show any evidence of myocardial ischemia. A 2D echo does not show any evidence of wall motion abnormalities. If her heart rate remains controlled in the morning, she can be discharged home from my standpoint. I have left a script for sotalol and Xarelto in her chart. Radha SOTO D.O. DR: REBA AN: [id number] RECEIPT: [id number]
[2021-04-09] MEDS: ZOSYN 3.375 GM 3.375 GM in NS 100ML 100 ML IV SCH (05:49)
[2021-04-09 06:58] LABS: BASOPHIL % 0.3 % (0.0-0.2); EOSINOPHIL # 0.2 10^3/uL (0.0-0.2); EOSINOPHIL % 1.8 % (0.0-5.0); LYMPHOCYTES # 1.53 10^3/uL1 (1.0-4.8); LYMPHOCYTES % 14.9 % (24.0-44.0); MEAN CORP HGB 29.5 pg (26-34); MONOCYTES # 0.5 10^3/uL (0.3-0.8); MONOCYTES % 4.7 % (5.0-12.0); NEUTROPHIL # 8.1 10^3/uL (1.8-7.7); NEUTROPHILS % 78.3 % (41.0-85.0); RED CELL DISTRIBUTION WIDTH 14.7 % (11.5-14.5)
[2021-04-09 07:17] LABS: CALCIUM 8.5 mg/dL (8.4-10.5); CARBON DIOXIDE 29.4 mmol/L (20.0-32)
--- NOTE | 2021-04-09 07:20 | NUR ---
REPORT TO ONCOMING SHIFT. PT CARE RELINQUISHED.
[2021-04-09] MEDS: HUMALOG SQ SCH (08:05)
[2021-04-09] MEDS: KLOR-CON 10 PO SCH (08:32)
[2021-04-09] MEDS: BETAPACE PO SCH (08:32)
[2021-04-09] MEDS: PROTONIX PO SCH (08:32)
[2021-04-09] MEDS: GLUCOPHAGE PO SCH (08:32)
[2021-04-09] MEDS: XARELTO PO SCH (08:33)
[2021-04-09] MEDS ORDERED: TAPAZOLE PO ONE (08:45)
[2021-04-09] MEDS: TAPAZOLE PO SCH (08:58)
[2021-04-09] MEDS ORDERED: AUGMENTIN 875-125 TABLET PO SCH (09:30)
[2021-04-09] MEDS ORDERED: SOTA80TA18 PO (10:32)
[2021-04-09] MEDS ORDERED: RIVA10TA PO (10:32)
[2021-04-09] MEDS ORDERED: METH5TAB6 PO (10:32)
[2021-04-09] MEDS ORDERED: AMOX1TAB63 PO (10:32)
[2021-04-09] MEDS ORDERED: Metformin Hcl PO (10:32)
--- NOTE | 2021-04-09 10:40 | PRM.DC ---
Discharge Summary Date of Discharge: Apr 09, 2021 Time of Request to Discharge: 10:33 Hospital Course This is 70-year-old female who was transferred from [facility] after she was found to have altered mental status and new onset atrial fibrillation with rapid ventricular response. Patient was also found to have a UTI as well as a pneumonia and was treated with antibiotics. Patient's atrial fibrillation was managed with Cardizem drip initially but was transitioned to sotalol by cardiology. We will continue on Xarelto for anticoagulation. Patient also had a low TSH and high thyroid function and has been started on methimazole for hyperthyroidism. Patient will need to be followed up as outpatient for all the 3 acute issues including: Hypothyroidism, A. fib, poorly controlled diabetes, and pneumonia. 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 General: Alert, Oriented X3, Cooperative, No acute distress HEENT: Atraumatic, PERRLA Neck: Supple, No JVD Lungs: Clear to auscultation Heart: Regular rate, Other (Murmur present) Abdomen: Normal bowel sounds Extremities: No clubbing, No cyanosis, Other (1+ BLE edema) Skin: No rashes Neuro: Normal gait Psych/Mental Status: Mental status NL Scheduled Amoxicillin/Potassium Clav (Augmentin 875-125 Tablet), 1 EACH PO BID Methimazole (Methimazole), 10 MG PO BID Rivaroxaban (Xarelto), 20 MG PO DAILY Sotalol Hcl (Betapace), 80 MG PO BID [Metformin Hcl], 1,000 MG PO BID Sepsis Evaluation @ Discharge Laboratory Tests Test 04/07/21 05:30 04/07/21 07:31 04/07/21 09:15 04/07/21 11:23 White Blood Count 8.4 10^3/uL Red Blood Count 3.32 10^6/uL Hemoglobin 9.9 g/dL Hematocrit 30.4 % Mean Corpuscular Volume 91.6 fL Mean Corpuscular Hemoglobin 29.8 pg Mean Corpuscular Hemoglobin Concent 32.6 g/dL Red Cell Distribution Width 14.5 % Platelet Count 259 10^3/uL Mean Platelet Volume 12.1 fL Neutrophils (%) (Auto) 79.3 % Lymphocytes (%) (Auto) 13.6 % Monocytes (%) (Auto) 5.7 % Neutrophils # (Auto) 6.6 10^3/uL Lymphocytes # (Auto) 1.14 10^3/uL1 Monocytes # (Auto) 0.5 10^3/uL Absolute Immature Granulocyte (auto 0.08 10^3 u/L Absolute Eosinophils (auto) 0.1 10^3/uL Immature Granulocytes % 1.00 % Eosinophils % 1.3 % Basophils % 0.1 % Basophils # 0.0 10^3/uL Sodium Level 145 mmol/L Potassium Level 3.2 mmol/L Chloride Level 108.0 mmol/L Carbon Dioxide Level 24.5 mmol/L Glucose Level 228 mg/dL Blood Urea Nitrogen 25 mg/dL Creatinine 0.93 mg/dL Calcium Level 8.4 mg/dL Anion Gap 15.7 Estimated GFR () 71.9 Est GFR (CKD-EPI)(Non-Afr Ivorian) 59.4 BUN/Creatinine Ratio 26.0 Hemoglobin A1c 8.4 % Magnesium Level 1.7 mg/dL Troponin I < 0.02 ng/mL Pro-B-Type Natriuretic Peptide 1210 pg/mL Triglycerides Level 206 mg/dL Cholesterol Level 98 mg/dL LDL Cholesterol, Calculated 42.8 VLDL Cholesterol, Calculated 41.2 HDL Cholesterol 14 mg/dL Cholesterol Ratio (LDL/HDL) 3.0 Cholesterol/HDL Ratio [id number] Thyroid Stimulating Hormone (TSH) < 0.010 mIU/mL Free Thyroxine 1.68 ng/dL Bedside Glucose 223 320 Prothrombin Time 15.6 SEC Prothrombin Time INR (Non-Therap) 1.5 Activated Partial Thromboplast Time 30.5 SEC Test 04/07/21 13:00 04/07/21 14:25 04/07/21 15:30 04/07/21 20:43 Potassium Level 3.1 mmol/L 3.3 mmol/L Magnesium Level 2.4 mg/dL Urine Collection Type CATH Urine Color STRAW Urine Appearance HAZY Urine Bilirubin NEGATIVE Urine Ketones NEGATIVE Urine Specific [place] 1.010 Urine pH 5.0 Urine Protein NEGATIVE Urine Urobilinogen 0.2 E.U./dL Urine Nitrate NEGATIVE Urine Leukocyte Esterase NEGATIVE Urine Glucose (Auto)(UA) 100 Urine Blood LARGE Urine RBC TNTC RBC/HPF Urine WBC 2-5 WBC/HPF Urine Squamous Epithelial Cells RARE #/HPF Urine Bacteria NONE SEEN White Blood Count 11.1 10^3/uL Red Blood Count 3.73 10^6/uL Hemoglobin 10.7 g/dL Hematocrit 33.8 % Mean Corpuscular Volume 90.6 fL Mean Corpuscular Hemoglobin 28.7 pg Mean Corpuscular Hemoglobin Concent 31.7 g/dL Red Cell Distribution Width 14.6 % Platelet Count 346 10^3/uL Mean Platelet Volume 11.3 fL Neutrophils (%) (Auto) 84.6 % Lymphocytes (%) (Auto) 10.2 % Monocytes (%) (Auto) 3.9 % Neutrophils # (Auto) 9.4 10^3/uL Lymphocytes # (Auto) 1.13 10^3/uL1 Monocytes # (Auto) 0.4 10^3/uL Absolute Immature Granulocyte (auto 0.10 10^3 u/L Absolute Eosinophils (auto) 0.0 10^3/uL Immature Granulocytes % 0.90 % Eosinophils % 0.3 % Basophils % 0.1 % Basophils # 0.0 10^3/uL Sodium Level 143 mmol/L Chloride Level 104.0 mmol/L Carbon Dioxide Level 28.0 mmol/L Anion Gap 14.3 Blood Urea Nitrogen 22 mg/dL Creatinine 1.10 mg/dL Estimated GFR () 59.2 Est GFR (CKD-EPI)(Non-Afr Ivorian) 49.0 BUN/Creatinine Ratio 20.0 Glucose Level 235 mg/dL Calcium Level 8.4 mg/dL Total Bilirubin 0.6 mg/dL Aspartate Amino Transf (AST/SGOT) 20 U/L Alanine Aminotransferase (ALT/SGPT) 68 U/L Alkaline Phosphatase 129 U/L Total Protein 6.8 g/dL Albumin 2.0 g/dL Globulin 4.8 Albumin/Globulin Ratio 0.416 Bedside Glucose 151 Test 04/08/21 05:10 White Blood Count 10.0 10^3/uL Red Blood Count 3.53 10^6/uL Hemoglobin 10.1 g/dL Hematocrit 32.2 % Mean Corpuscular Volume 91.2 fL Mean Corpuscular Hemoglobin 28.6 pg Mean Corpuscular Hemoglobin Concent 31.4 g/dL Red Cell Distribution Width 14.5 % Platelet Count 343 10^3/uL Mean Platelet Volume 11.7 fL Neutrophils (%) (Auto) 78.0 % Lymphocytes (%) (Auto) 14.4 % Monocytes (%) (Auto) 5.6 % Neutrophils # (Auto) 7.8 10^3/uL Lymphocytes # (Auto) 1.43 10^3/uL1 Monocytes # (Auto) 0.6 10^3/uL Absolute Immature Granulocyte (auto 0.07 10^3 u/L Absolute Eosinophils (auto) 0.1 10^3/uL Immature Granulocytes % 0.70 % Eosinophils % 1.1 % Basophils % 0.2 % Basophils # 0.0 10^3/uL Sodium Level 147 mmol/L Potassium Level 3.1 mmol/L Chloride Level 106.0 mmol/L Carbon Dioxide Level 29.4 mmol/L Anion Gap 14.7 Blood Urea Nitrogen 24 mg/dL Creatinine 0.97 mg/dL Estimated GFR () 68.5 Est GFR (CKD-EPI)(Non-Afr Ivorian) 56.6 BUN/Creatinine Ratio 24.0 Glucose Level 177 mg/dL Hemoglobin A1c 8.1 % Calcium Level 8.7 mg/dL Total Bilirubin 0.6 mg/dL Aspartate Amino Transf (AST/SGOT) 21 U/L Alanine Aminotransferase (ALT/SGPT) 64 U/L Alkaline Phosphatase 114 U/L Total Protein 6.5 g/dL Albumin 2.0 g/dL Globulin 4.5 Albumin/Globulin Ratio 0.444 Current Medications Medications (Trade) Dose Ordered Sig/Leelee PRN Reason Start Time Stop Time Status Last Admin Acetaminophen (Tylenol) 1,000 mg Q6H PRN PAIN 1 - 3 04/07/21 01:00 05/07/21 00:59 Digoxin (Lanoxin) 125 mcg DAILY 04/07/21 09:00 05/07/21 08:59 04/08/21 08:13 Diltiazem HCl (Cardizem) 60 mg Q6HR 04/07/21 06:00 05/07/21 05:59 04/08/21 05:58 Diltiazem HCl 125 mg/Sodium Chloride 125 ml @ 0 mls/hr TITRATE 04/07/21 03:30 05/07/21 03:29 04/07/21 16:34 Insulin Human Lispro (Humalog) 0-140 0 Units 141-200... ACHS 04/07/21 07:30 05/07/21 07:29 04/08/21 07:30 Lorazepam (Ativan) 0.5 mg Q6H PRN AGITATION 04/07/21 01:00 05/07/21 00:59 Metformin HCl (Glucophage) 500 mg BID 04/07/21 09:00 05/07/21 08:59 04/08/21 08:12 Methimazole (Tapazole) 10 mg BID 04/07/21 09:00 05/07/21 08:59 04/08/21 08:13 Metoprolol Succinate (Toprol Xl) 25 mg DAILY 04/08/21 09:00 05/08/21 08:59 UNV 04/08/21 08:12 Metoprolol Tartrate (Lopresser) 5 mg STAT STAT 04/08/21 06:28 04/08/21 06:29 UNV 04/08/21 06:53 Oxybutynin Chloride (Ditropan) 10 mg HS 04/07/21 21:00 05/07/21 20:59 04/07/21 20:33 Pantoprazole Sodium (Protonix) 40 mg DAILY 04/07/21 09:00 05/07/21 08:59 04/08/21 08:13 Piperacillin Sod/ Tazobactam Sod 3.375 gm/Sodium Chloride 100 ml @ 100 mls/hr Q6H 04/07/21 00:00 05/07/21 00:00 04/08/21 05:44 Potassium Chloride (Klor-Con 10) 20 meq BID 04/07/21 09:30 05/07/21 09:29 04/08/21 08:13 Potassium Chloride (Klor-Con 10) 40 meq STAT 04/08/21 07:30 05/08/21 07:29 UNV Rivaroxaban (Xarelto) 20 mg DAILY 04/07/21 09:00 05/07/21 08:59 04/08/21 08:13 Course Sepsis Screening Results: Posi: NEGATIVE Sepsis Qualifier/Stage: NO DEFINITE RISK Vitals & review Data Laboratory Tests Test 04/07/21 05:30 04/07/21 07:31 04/07/21 09:15 04/07/21 11:23 White Blood Count 8.4 10^3/uL Red Blood Count 3.32 10^6/uL Hemoglobin 9.9 g/dL Hematocrit 30.4 % Mean Corpuscular Volume 91.6 fL Mean Corpuscular Hemoglobin 29.8 pg Mean Corpuscular Hemoglobin Concent 32.6 g/dL Red Cell Distribution Width 14.5 % Platelet Count 259 10^3/uL Mean Platelet Volume 12.1 fL Neutrophils (%) (Auto) 79.3 % Lymphocytes (%) (Auto) 13.6 % Monocytes (%) (Auto) 5.7 % Neutrophils # (Auto) 6.6 10^3/uL Lymphocytes # (Auto) 1.14 10^3/uL1 Monocytes # (Auto) 0.5 10^3/uL Absolute Immature Granulocyte (auto 0.08 10^3 u/L Absolute Eosinophils (auto) 0.1 10^3/uL Immature Granulocytes % 1.00 % Eosinophils % 1.3 % Basophils % 0.1 % Basophils # 0.0 10^3/uL Sodium Level 145 mmol/L Potassium Level 3.2 mmol/L Chloride Level 108.0 mmol/L Carbon Dioxide Level 24.5 mmol/L Glucose Level 228 mg/dL Blood Urea Nitrogen 25 mg/dL Creatinine 0.93 mg/dL Calcium Level 8.4 mg/dL Anion Gap 15.7 Estimated GFR () 71.9 Est GFR (CKD-EPI)(Non-Afr Ivorian) 59.4 BUN/Creatinine Ratio 26.0 Hemoglobin A1c 8.4 % Magnesium Level 1.7 mg/dL Troponin I < 0.02 ng/mL Pro-B-Type Natriuretic Peptide 1210 pg/mL Triglycerides Level 206 mg/dL Cholesterol Level 98 mg/dL LDL Cholesterol, Calculated 42.8 VLDL Cholesterol, Calculated 41.2 HDL Cholesterol 14 mg/dL Cholesterol Ratio (LDL/HDL) 3.0 Cholesterol/HDL Ratio [id number] Thyroid Stimulating Hormone (TSH) < 0.010 mIU/mL Free Thyroxine 1.68 ng/dL Bedside Glucose 223 320 Prothrombin Time 15.6 SEC Prothrombin Time INR (Non-Therap) 1.5 Activated Partial Thromboplast Time 30.5 SEC Test 04/07/21 13:00 04/07/21 14:25 04/07/21 15:30 04/07/21 20:43 Potassium Level 3.1 mmol/L 3.3 mmol/L Magnesium Level 2.4 mg/dL Urine Collection Type CATH Urine Color STRAW Urine Appearance HAZY Urine Bilirubin NEGATIVE Urine Ketones NEGATIVE Urine Specific [place] 1.010 Urine pH 5.0 Urine Protein NEGATIVE Urine Urobilinogen 0.2 E.U./dL Urine Nitrate NEGATIVE Urine Leukocyte Esterase NEGATIVE Urine Glucose (Auto)(UA) 100 Urine Blood LARGE Urine RBC TNTC RBC/HPF Urine WBC 2-5 WBC/HPF Urine Squamous Epithelial Cells RARE #/HPF Urine Bacteria NONE SEEN White Blood Count 11.1 10^3/uL Red Blood Count 3.73 10^6/uL Hemoglobin 10.7 g/dL Hematocrit 33.8 % Mean Corpuscular Volume 90.6 fL Mean Corpuscular Hemoglobin 28.7 pg Mean Corpuscular Hemoglobin Concent 31.7 g/dL Red Cell Distribution Width 14.6 % Platelet Count 346 10^3/uL Mean Platelet Volume 11.3 fL Neutrophils (%) (Auto) 84.6 % Lymphocytes (%) (Auto) 10.2 % Monocytes (%) (Auto) 3.9 % Neutrophils # (Auto) 9.4 10^3/uL Lymphocytes # (Auto) 1.13 10^3/uL1 Monocytes # (Auto) 0.4 10^3/uL Absolute Immature Granulocyte (auto 0.10 10^3 u/L Absolute Eosinophils (auto) 0.0 10^3/uL Immature Granulocytes % 0.90 % Eosinophils % 0.3 % Basophils % 0.1 % Basophils # 0.0 10^3/uL Sodium Level 143 mmol/L Chloride Level 104.0 mmol/L Carbon Dioxide Level 28.0 mmol/L Anion Gap 14.3 Blood Urea Nitrogen 22 mg/dL Creatinine 1.10 mg/dL Estimated GFR () 59.2 Est GFR (CKD-EPI)(Non-Afr Ivorian) 49.0 BUN/Creatinine Ratio 20.0 Glucose Level 235 mg/dL Calcium Level 8.4 mg/dL Total Bilirubin 0.6 mg/dL Aspartate Amino Transf (AST/SGOT) 20 U/L Alanine Aminotransferase (ALT/SGPT) 68 U/L Alkaline Phosphatase 129 U/L Total Protein 6.8 g/dL Albumin 2.0 g/dL Globulin 4.8 Albumin/Globulin Ratio 0.416 Bedside Glucose 151 Test 04/08/21 05:10 White Blood Count 10.0 10^3/uL Red Blood Count 3.53 10^6/uL Hemoglobin 10.1 g/dL Hematocrit 32.2 % Mean Corpuscular Volume 91.2 fL Mean Corpuscular Hemoglobin 28.6 pg Mean Corpuscular Hemoglobin Concent 31.4 g/dL Red Cell Distribution Width 14.5 % Platelet Count 343 10^3/uL Mean Platelet Volume 11.7 fL Neutrophils (%) (Auto) 78.0 % Lymphocytes (%) (Auto) 14.4 % Monocytes (%) (Auto) 5.6 % Neutrophils # (Auto) 7.8 10^3/uL Lymphocytes # (Auto) 1.43 10^3/uL1 Monocytes # (Auto) 0.6 10^3/uL Absolute Immature Granulocyte (auto 0.07 10^3 u/L Absolute Eosinophils (auto) 0.1 10^3/uL Immature Granulocytes % 0.70 % Eosinophils % 1.1 % Basophils % 0.2 % Basophils # 0.0 10^3/uL Sodium Level 147 mmol/L Potassium Level 3.1 mmol/L Chloride Level 106.0 mmol/L Carbon Dioxide Level 29.4 mmol/L Anion Gap 14.7 Blood Urea Nitrogen 24 mg/dL Creatinine 0.97 mg/dL Estimated GFR () 68.5 Est GFR (CKD-EPI)(Non-Afr Ivorian) 56.6 BUN/Creatinine Ratio 24.0 Glucose Level 177 mg/dL Hemoglobin A1c 8.1 % Calcium Level 8.7 mg/dL Total Bilirubin 0.6 mg/dL Aspartate Amino Transf (AST/SGOT) 21 U/L Alanine Aminotransferase (ALT/SGPT) 64 U/L Alkaline Phosphatase 114 U/L Total Protein 6.5 g/dL Albumin 2.0 g/dL Globulin 4.5 Albumin/Globulin Ratio 0.444 Current Medications Medications (Trade) Dose Ordered Sig/Leelee PRN Reason Start Time Stop Time Status Last Admin Acetaminophen (Tylenol) 1,000 mg Q6H PRN PAIN 1 - 3 04/07/21 01:00 05/07/21 00:59 Digoxin (Lanoxin) 125 mcg DAILY 04/07/21 09:00 05/07/21 08:59 04/08/21 08:13 Diltiazem HCl (Cardizem) 60 mg Q6HR 04/07/21 06:00 05/07/21 05:59 04/08/21 05:58 Diltiazem HCl 125 mg/Sodium Chloride 125 ml @ 0 mls/hr TITRATE 04/07/21 03:30 05/07/21 03:29 04/07/21 16:34 Insulin Human Lispro (Humalog) 0-140 0 Units 141-200... ACHS 04/07/21 07:30 05/07/21 07:29 04/08/21 07:30 Lorazepam (Ativan) 0.5 mg Q6H PRN AGITATION 04/07/21 01:00 05/07/21 00:59 Metformin HCl (Glucophage) 500 mg BID 04/07/21 09:00 05/07/21 08:59 04/08/21 08:12 Methimazole (Tapazole) 10 mg BID 04/07/21 09:00 05/07/21 08:59 04/08/21 08:13 Metoprolol Succinate (Toprol Xl) 25 mg DAILY 04/08/21 09:00 05/08/21 08:59 UNV 04/08/21 08:12 Metoprolol Tartrate (Lopresser) 5 mg STAT STAT 04/08/21 06:28 04/08/21 06:29 UNV 04/08/21 06:53 Oxybutynin Chloride (Ditropan) 10 mg HS 04/07/21 21:00 05/07/21 20:59 04/07/21 20:33 Pantoprazole Sodium (Protonix) 40 mg DAILY 04/07/21 09:00 05/07/21 08:59 04/08/21 08:13 Piperacillin Sod/ Tazobactam Sod 3.375 gm/Sodium Chloride 100 ml @ 100 mls/hr Q6H 04/07/21 00:00 05/07/21 00:00 04/08/21 05:44 Potassium Chloride (Klor-Con 10) 20 meq BID 04/07/21 09:30 05/07/21 09:29 04/08/21 08:13 Potassium Chloride (Klor-Con 10) 40 meq STAT 04/08/21 07:30 05/08/21 07:29 UNV Rivaroxaban (Xarelto) 20 mg DAILY 04/07/21 09:00 05/07/21 08:59 04/08/21 08:13 LEVEL 1 SEPSIS INFECTION CRITE: ABX Therapy, Flu-Pneumonia, Urinary Tract Infection LEVEL 2-SIRS (LIST ALL THAT AP: RR>20/min, HR>90/min O2 Sat by Pulse Oximetry: 94 Oxygen Flow Rate: 2.00 Plan Assessment 1. Atrial fibrillation: Sotalol 80 mg twice daily and Xarelto 20 mg daily 2. Hyperthyroidism: Methimazole 10 mg daily. Will need repeat thyroid function testing in 6-8 weeks with pcp 3. Pneumonia: 5 days of Augmentin 875/125 mg twice daily 4. Diabetes mellitus: Increase home dose of Metformin to 1000 twice daily Follow up with PCP and local cardiology within a week. Cardiology has cleared the patient for discharge Discharge Disposition: Stable Plan 1. Atrial fibrillation: Sotalol 80 mg twice daily and Xarelto 20 mg daily 2. Hyperthyroidism: Methimazole 10 mg daily. Will need repeat thyroid function testing in 6-8 weeks with pcp 3. Pneumonia: 5 days of Augmentin 875/125 mg twice daily 4. Diabetes mellitus: Increase home dose of Metformin to 1000 twice daily Follow up with PCP and local cardiology within a week. Cardiology has cleared the patient for discharge SHARA FLORES Apr 09, 2021 10:40 JLUIS WELLS MD Apr 09, 2021 18:21
--- NOTE | 2021-04-09 12:20 | NUR ---
DISCHARGE PT DISCHARGED AT THIS TIME IN STABLE CONDITION ACCOMPANIED BY DAUGHTER TO DAUGHTER'S PRIVATE AUTO. CATHETER DISCONTINUED. WITHDREW 9 CC'S OF AIR FROM [place]. PT INSTRUCTED TO BEAR DOWN DURING REMOVAL. PT TOLERATED WELL. PT EDUCATED ON CAUTI'S. SINGLE LUMEN MIDLINE DISCONTINUED. PT INSTRUCTED TO BEAR DOWN. PT TOLERATED WELL. TIP IN TACT. THIS NURSE HELD PRESSURE TO SITE FOR 4 MINUTES. DRESSED WITH 4X4 GAUZE AND BIO-OCCLUSIVE DRESSING. PT INSTRUCTED TO REMOVE AFTER 24 HOURS. 20 GAUGE IV TO RIGHT WRIST DISCONTINUED AT THIS TIME. PT AND DAUGHTER EDUCATED ON NEW MEDICATIONS TO BE TAKEN. METHIMAZOLE FOR ELEVATED T4. DR. FARLEY SPOKE TO PT ABOUT F/U WITH ENDOCRINOLOGY. EDUCATED PT REGARDING PROBIOTIC USE ALONGSIDE ANTIBIOTIC THERAPIES FOR MOSQUE OF NORMAL ALY. REVIEWED LABS, VITALS, AND OTHER INFORMATION WITH PT PRIOR TO DISCHARGE. PT NOR DAUGHTER STATED ANY FURTHER QUESTIONS AT THIS TIME. PT DISCHARGED ON ROOM AIR FOLLOWING SEVERAL HOURS OF O2 SATURATIONS IN THE LOW TO MID 90'S. PT TAKEN TO DAUGHTER'S PRIVATE AUTO VIA WHEELCHAIR BY THIS NURSE AT THIS TIME. THIS NURSE RELINQUISHES CARE OF PT AT THIS TIME.
== END 2021-04-09 12:20 | disposition home or self-care (01) | DRG 308 ==
LOC: INTOOBSV 22:22 → UNDOADMIN 22:22 → OBSVTOIN 22:22 → ICU 22:22 → UNDODISIN 04-09 12:20
PROVIDERS: ADMIT Family Medicine; ATTEND Family Medicine
PROC: 05HY33Z Insertion of Infusion Device into Upper Vein, Percutaneous Approach (ICD-10-PCS; principal; 2021-04-07)
DX: I48.0 Paroxysmal atrial fibrillation (principal); J18.9 Pneumonia, unspecified organism; E87.0 Hyperosmolality and hypernatremia; N39.0 Urinary tract infection, site not specified; I48.92 Unspecified atrial flutter; E05.90 Thyrotoxicosis, unspecified without thyrotoxic crisis or storm; B96.20 Unspecified Escherichia coli [E. coli] as the cause of diseases classified elsewhere; E11.9 Type 2 diabetes mellitus without complications; E03.9 Hypothyroidism, unspecified; E78.5 Hyperlipidemia, unspecified; I08.1 Rheumatic disorders of both mitral and tricuspid valves; E87.6 Hypokalemia; I27.20 Pulmonary hypertension, unspecified; K21.9 Gastro-esophageal reflux disease without esophagitis; Z79.01 Long term (current) use of anticoagulants; Z79.84 Long term (current) use of oral hypoglycemic drugs
CPT/HCPCS: 36415; 36569; 71045; 80048; 80053; 80061; 81001; 82948; 83036; 83735; 83880; 84132; 84439; 84443; 84484; 85025; 85610; 85730; 87086; 93005; 93306; G0378; J1815; J1940; J1956; J2543; J3010; J3475; J3490; J7040; J7050; J3480